=== PATIENT | female | born 1960 | race Caucasian/White ===

== ENCOUNTER 2024-07-05 09:43 | Emergency (ER) | payer OTHER ==
[2024-07-05 09:51] VITALS: BP 143/81; PULSE 56; RESP 18; TEMP 98.1; BMI 43.4
== END 2024-07-05 11:50 | disposition home or self-care (01) ==
LOC: JER 09:43
DX: L03.114 Cellulitis of left upper limb (principal)
CPT/HCPCS: 99283-25